=== PATIENT | female | born 1965 ===

== ENCOUNTER 2022-09-23 08:58 | Outpatient (AMB) | payer OTHER, SELFPAY ==
--- NOTE | 2022-09-23 09:03 | A.OFFPC_ITS ---
Vital Signs 09/23/22 09:19 BMI Reason not done Patient refused/unable BP 100/70 Blood Pressure Location Lt brachial Position Sitting Pulse 79 Pulse Source Pulse Oximeter Pulse Oximetry (%) 98 Oxygen Delivery Method Room Air Intake Visit Reasons: PE Intake Note: Pt is here today as a New Patient to est care/PE Allergies anesthesia Allergy (Intermediate, Uncoded 02/15/23 14:19) heart stops almond Adverse Reaction (Uncoded 02/15/23 14:19) Anaphylaxis eggs Adverse Reaction (Uncoded 02/15/23 14:19) rash latex Adverse Reaction (Uncoded 02/15/23 14:19) rash soy sauce Adverse Reaction (Uncoded 02/15/23 14:19) Anaphylaxis Medication List - Last Reconciled 09/23/22 by Leatha Marte MD albuterol sulfate 90 mcg/actuation (Ventolin HFA) 0 mcg inhalation albuterol sulfate mg inhalation Q6H PRN baclofen 10 mg PO TID betamethasone dipropionate 0.05% topical BID clobetasol 0.05% mL topical DAILY cyclosporine 0.05% drps ophthalmic (eye) dalfampridine ER 0 mg PO ezetimibe 10 mg PO DAILY kjpngkmjnyc-nzzlfdysn-oxstugam 200-62.5-25 mcg (Trelegy Ellipta) 1 ea inhalation DAILY gabapentin 600 mg PO QID hydroxychloroquine 200 mg PO BID ketoconazole 2% 1 appl topical mirtazapine 15 mg PO BEDTIME oxycodone 10 mg PO BID PRN pantoprazole 40 mg PO BID polyethylene glycol 3350 17 grams PO BID prednisone 7.5 mg PO DAILY sertraline 200 mg PO QAM sulfamethoxazole-trimethoprim 800-160 mg 1 tab PO 3XW tacrolimus 0.1% topical BID triamcinolone acetonide 0.1% dental BID umeclidinium 62.5 mcg/actuation (Incruse Ellipta) 1 inh inhalation DAILY warfarin 1 - 4 mg PO QAM Tobacco use date assessed: 09/23/22 HPI PE HPI Details 58-year-old lady here today to establish care with new PCP. She is currently being seen at [facility] , currently sees Dr.Farrah Estrada for her MS. She sees Dr. Shabana Chun , Rheumatology, for treatment of her systemic lupus erythematosus with history of pericarditis, , sicca syndrome , Neuromyelitis optica and for her osteoporosis. She is also being followed by Dr. Chicho Paredes , her director of academic for her mild persistent asthma. Awaiting copy of medical records for review. Patient states that she has had recent labs done as well as mammogram done at [facility]. Has history of recurrent DVT, currently on warfarin managed by [facility] anticoagulation management service. Does not get a flu vaccine or the COVID vaccine booster, as she has had a bad reaction from the former, and is apprehensive about getting the COVID booster. She has depression, since her teenage years, currently sees Dr. Aubrie Harden at [facility] in [place]. She has no acute complaints at present time. [facility], [facility] Medical History (Updated 12/22/23 @ 01:40 by Leatha Marte MD) Chronic pain of both shoulders Atherosclerosis of [place] coronary artery of [place] heart without angina pectoris History of recurrent deep vein thrombosis (DVT) Osteoporosis Sicca syndrome Multiple sclerosis History of COVID-19 Depression Mild persistent asthma Neuromyelitis optica Neurogenic bladder SLE (systemic lupus erythematosus related syndrome) Surgical History (Updated 12/22/23 @ 01:39 by Leatha Marte MD) Status post total hysterectomy Hx of colonoscopy Family History Brother Mental health disorder Daughter Mental health disorder Social History Housing: House Patient Tobacco Use Status: Never used Tobacco e-Cigarette/Vaping Use: Never Used service: No Current occupational status: disabled Cognitive needs: No Hearing needs: No Vision needs: Yes Questionnaire PHQ-9 Over the last 2 weeks, how often have you been bothered by any of the following problems? 1. Little interest or pleasure in doing things: several days 2. Feeling down, depressed, or hopeless: not at all 3. Trouble falling or staying asleep, or sleeping too much: more than half the days 4. Feeling tired or having little energy: more than half the days 5. Poor appetite or overeating: not at all 6. Feeling bad about yourself - or that you are a failure or have let yourself or your family down: not at all 7. Trouble concentrating on things, such as reading the newspaper or watching television: several days 8. Moving or speaking so slowly that other people could have noticed. Or the opposite - being so fidgety or restless that you have been moving around a lot more than usual: not at all 9. Thoughts that you would be better off or of hurting yourself in some way: not at all Total score: 6 Depression Screening Interpretation: Positive (Currently controlled with medication, sees Dr. Aubrie Harden at [facility] in [place]) [address] - PHQ-9 Billing: Yes Source: Developed by Drs. Varghese Campuzano, Brigitte Curry, Reilly Bynum and colleagues, with an educational artie from [employer]. Thrive Questionnaire Declines Thrive assessment: No Date Thrive assessed: 09/23/22 I am a: Parent/Caregiver What is your living situation today?: I have a steady place to live Within the past 12 months, did the food you bought not last and you didn't have the money to get more?: Never true Within the past 12 months, did you worry whether your food would run out before you got money to buy more?: Never true Do you have trouble paying for medicines?: No Do you have trouble getting transportation to medical appointments?: No Do you have trouble paying your heating and electricity bill?: Yes Do you have trouble taking care of your child, family member or friend?: No Do you have trouble with day-to-day activities such as bathing, preparing meals, shopping, managing finances, etc.?: No Are you currently unemployed and looking for a job?: No Are you interested in more education?: No AUDIT C Alcohol Use Questionnaire (AUDIT-C) 1. How often do you have a drink containing alcohol?: Never Total Score: 0 JODY-7 AMB Questionnaire JODY-7 Date JODY - 7 assessed: 09/23/22 Feeling nervous, anxious, or on edge: 1 = Several days Not being able to stop or control worryin = Several days Worrying too much about different things: 1 = Several days Trouble relaxin = Several days Being so restless that it is hard to sit still: 0 = Not at all Becoming easily annoyed or irritable: 1 = Several days Feeling afraid as if something awful might happen: 0 = Not at all Total JODY-7 score (0-4 normal; 5-9 mild; 10-14 moderate; 15-21 severe): 5 Source: Developed by Drs. Varghese Campuzano, Brigitte Curry, Reilly Bynum and colleagues, with an educational artie from [employer]. JODY-7 Assessment Billing JODY-7 Assessment Tool: JODY-7 Assessment 37873 Review of Systems Const Denies body aches, Denies fever(s), Reports headache(s) and Denies weakness Eyes Denies change in vision ENT Reports dysphagia (Occasional), Denies dizziness, Reports headache(s), Denies nasal congestion, Denies nasal discharge and Denies sore throat Card Details: Followed by Dr.Cian Gui Mcmahan @ [facility] Denies chest pain, Denies lightheadedness, Denies palpitations and Denies dyspnea Resp Denies chest congestion, Denies cough, Denies dyspnea and Denies wheezing GI Details: Her GI specialist Dr. 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 Vida Hoffman Denies breast pain, Denies breast mass and Denies rash Neuro Denies dizziness, Reports headache(s), Reports Sensory deficit (Neuro) (No sensation below sternum) and Denies weakness Psych Reports as per HPI Endo Denies polydipsia, Denies polyuria and Denies palpitations Salvador/Lymph Details: On chronic anticoagulation with warfarin currently followed at [facility] Reports easy bruising Aller/Immun Details: Followed by research chief engineer, Dr.Anna Bonnie Gordon Reports seasonal rhinorrhea and Denies wheezing Physical exam (Primary Care) Vital Signs: Last Vital Signs Pulse 79 09/23/22 09:19 BP 100/70 09/23/22 09:19 Pulse Ox 98 09/23/22 09:19 Oxygen Delivery Method Room Air 09/23/22 09:19 Tobacco/Smoking Status: Tobacco use Status Tobacco use date assessed 09/23/22 09/23/22 09:18 Patient Tobacco Use Status Never used Tobacco 09/23/22 09:18 e-Cigarette/Vaping Use Never Used 09/23/22 09:18 PHQ-9: PHQ-9 Score PHQ-9: Total score 6 12/12/23 22:13 Depression Screening Interpretation: Positive (Currently controlled with medication, sees Dr. Aubrie Harden at [facility] in [place]) Thrive Assessment: Date of Thrive Assessment Date Thrive assessed 09/23/22 09/23/22 09:35 Const Other: Alert oriented x3 HENMT Head: Yes normocephalic Ears: external ears normal, TM's normal bilaterally and EAC's normal General nose exam: Normal external nose present Face and sinus: Yes face symmetric Mouth: Normal oral and palatal mucosa present and moist mucous membranes Eyes Other: VA :20/20 OS , blind OD General: appearance normal, both eyes and all related structures Neck Neck: Yes full ROM and Yes supple Chest Breast/axilla palpation: normal palpation of the breasts Resp Auscultation: clear to auscultation bilaterally Cardio Rate: regular rate Rhythm: regular rhythm Heart sounds: S1 normal heart sound present and S2 normal heart sound present GI Palpation (GI): Soft to palpation, nontender and no masses Auscultation: normal bowel sounds General: Yes no CVA tenderness and Yes deferred (Patient refuses exam) Back/Spine/Pelvis Back: no CVA tenderness and No back tenderness Neuro Sensory Exam: Sensory deficit (Neuro) (No sensation below sternum) Extrem Other: Positive ulnar deviation of fingers in both hands General: Yes no joint enlargement Psych Appearance: grossly normal Mental Status: mental status grossly normal Speech and movement: Normal speech and movement present Affect: normal affect Assessment and Plan Assessment & Plan (1) Annual visit for general adult medical examination with abnormal findings: Code(s): Z00.01 - Encounter for general adult medical examination with abnormal findings Plan: Requested copy of medical records, to include recent labs done. Recommended dental visit every 6 months and regular eye exams.. Take adequate calcium in diet and vitamin-D 3 at 2000 IU per cap once a day, but is limited in her ability to exercise. Instructed to do self-breast exam, and continue yearly mammogram, up-to-date.. Up-to-date with her screening colonoscopy done in 2018 due again in 2028. Patient declines getting flu vaccine hesitant to get COVID booster, recommended to get Shingrix vaccine which she can have administered at the local pharmacy. (2) Depression: Comment: Diagnosed when she was a teenager, currently seeing Dr. Aubrie Harden at [facility] Code(s): F32.A - Depression, unspecified Qualifiers: Depression Type: major depressive disorder Major depression recurrence: recurrent Active/Remission status: remission status unspecified Qualified Code(s): F33.9 - Major depressive disorder, recurrent, unspecified Plan: Currently on sertraline and mirtazapine, sees psychiatrist at [facility] (3) Mild persistent asthma: Comment: Followed by Dr. Chicho Paredes Code(s): J45.30 - Mild persistent asthma, uncomplicated Plan: Followed by Pulmonary at [facility], currently Incruse Ellipta, Trelegy Ellipta and has as needed albuterol inhaler (4) SLE (systemic lupus erythematosus related syndrome): Comment: Diagnosed at age [address] Shabana Chun. 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 Kelsea Estrada Had infusion in [address] [facility] Code(s): G35 - Multiple sclerosis (7) Sicca syndrome: Code(s): M35.00 - Sjogren syndrome, unspecified (8) History of recurrent deep vein thrombosis (DVT): Comment: Reportedly both and lower and upper extremities, previously been on warfarin for the past 4-5 years Code(s): Z86.718 - Personal history of other venous thrombosis and embolism Plan: On Coumadin, currently followed at [facility] AMS Medications: New polyethylene glycol 3350 17 grams PO BID 510 grams 1RF Coding Level of Care Code New Pt Prev Care 40-64y(69840) Diagnoses Annual visit for general adult medical examination with abnormal findings Z00.01 Recurrent major depressive disorder, remission status unspecified F33.9 Depression Type: major depressive disorder Major depression recurrence: recurrent Active/Remission status: remission status unspecified Mild persistent asthma J45.30 SLE (systemic lupus erythematosus related syndrome) M32.9 Neuromyelitis optica G36.0 Multiple sclerosis G35 Sicca syndrome M35.00 History of recurrent deep vein thrombosis (DVT) Z86.718 Additional Codes JODY-7 Assessment Billing - JODY-7 Assessment Tool: JODY-7 Assessment 34802 ([id number])
[2022-09-23 09:19] VITALS: BP 100/70; PULSE 79; O2SAT 98
== END 2022-09-23 12:56 | disposition home or self-care (01) ==
LOC: HO.HMGC 08:58
PROVIDERS: PCP Internal Medicine; Visit Provider Internal Medicine
DX: Z00.00 Encounter for general adult medical examination without abnormal findings (principal); F33.9 Major depressive disorder, recurrent, unspecified; M32.9 Systemic lupus erythematosus, unspecified; G36.0 Neuromyelitis optica [Devic]; G35 Multiple sclerosis; M35.00 Sjogren syndrome, unspecified; J45.30 Mild persistent asthma, uncomplicated; Z86.718 Personal history of other venous thrombosis and embolism
CPT/HCPCS: 99499

== ENCOUNTER 2023-02-15 12:59 | Outpatient (AMB) | payer OTHER, SELFPAY ==
--- NOTE | 2023-02-15 14:02 | A.OFFPC_ITS ---
Vital Signs 02/15/23 14:03 02/15/23 14:07 Height 5 ft 4 in BMI Reason not done Patient refused/unable BP 102/74 Blood Pressure Location Lt brachial Position Sitting Pulse 74 Pulse Source Pulse Oximeter Pulse Oximetry (%) 97 Oxygen Delivery Method Room Air Intake Visit Reasons: Med review Intake Note: pt is here today for med review Allergies anesthesia Allergy (Intermediate, Uncoded 02/15/23 14:19) heart stops almond Adverse Reaction (Uncoded 02/15/23 14:19) Anaphylaxis eggs Adverse Reaction (Uncoded 02/15/23 14:19) rash latex Adverse Reaction (Uncoded 02/15/23 14:19) rash soy sauce Adverse Reaction (Uncoded 02/15/23 14:19) Anaphylaxis Medication List - Last Reconciled 02/15/23 by Leatha Marte MD albuterol sulfate 90 mcg/actuation (Ventolin HFA) 0 mcg inhalation albuterol sulfate mg inhalation Q6H PRN baclofen 10 mg PO TID betamethasone dipropionate 0.05% topical BID clobetasol 0.05% mL topical DAILY cyclosporine 0.05% drps ophthalmic (eye) dalfampridine ER 0 mg PO ezetimibe 10 mg PO DAILY kjqniiixrji-juwdbuktq-weunhdvj 200-62.5-25 mcg (Trelegy Ellipta) 1 ea inhalation DAILY gabapentin 600 mg PO QID hydroxychloroquine 200 mg PO BID ketoconazole 2% 1 appl topical mirtazapine 15 mg PO BEDTIME oxycodone 10 mg PO BID PRN pantoprazole 40 mg PO BID polyethylene glycol 3350 17 grams PO BID prednisone 7.5 mg PO DAILY sertraline 200 mg PO QAM sulfamethoxazole-trimethoprim 800-160 mg 1 tab PO 3XW tacrolimus 0.1% topical BID triamcinolone acetonide 0.1% dental BID umeclidinium 62.5 mcg/actuation (Incruse Ellipta) 1 inh inhalation DAILY warfarin 1 - 4 mg PO QAM Tobacco use date assessed: 02/15/23 HPI Med review HPI Details 58-year-old lady with history of systemi c lupus erythematosus, sicca syndrome, history of multiple sclerosis, here today complaining of pain in shoulders, not relieved with Tylenol, or baclofen.. She is currently being seen by director of leadership development in [place] but has difficulty with transportation [facility] Medical History (Updated 12/22/23 @ 01:40 by Leatha Marte MD) Chronic pain of both shoulders Atherosclerosis of [place] coronary artery of [place] heart without angina pectoris History of recurrent deep vein thrombosis (DVT) Osteoporosis Sicca syndrome Multiple sclerosis History of COVID-19 Depression Mild persistent asthma Neuromyelitis optica Neurogenic bladder SLE (systemic lupus erythematosus related syndrome) Surgical History (Updated 12/22/23 @ 01:39 by Leatha Marte MD) Status post total hysterectomy Hx of colonoscopy Family History Brother Mental health disorder Daughter Mental health disorder Social History Housing: House Patient Tobacco Use Status: Never used Tobacco e-Cigarette/Vaping Use: Never Used service: No Current occupational status: disabled Cognitive needs: No Hearing needs: No Vision needs: Yes Questionnaire Thrive Questionnaire Date Thrive assessed: 09/23/22 AUDIT C Alcohol Use Questionnaire (AUDIT-C) 1. How often do you have a drink containing alcohol?: Never 3. How often do you have six or more drinks on one occasion?: Never Total Score: 0 JODY-7 AMB Questionnaire JODY-7 Date JODY - 7 assessed: 09/23/22 Source: Developed by Drs. Varghese Campuzano, Brigitte Curry, Reilly Bynum and colleagues, with an educational artie from [employer]. Review of Systems Const Denies fever(s) Eyes Denies change in vision ENT Reports dysphagia (Occasional), Denies dizziness, Denies nasal congestion, Denies nasal discharge and Denies sore throat Card Details: Followed by Dr.Cian Gui Mcmahan @ [facility] Denies chest pain, Denies lightheadedness, Denies palpitations and Denies dyspnea Resp Denies chest congestion, Denies cough and Denies dyspnea GI Details: Her GI specialist Dr. 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 Vida Hoffman Denies breast pain, Denies breast mass and Denies rash Neuro Denies dizziness and Reports Sensory deficit (Neuro) (No sensation below sternum) Endo Denies polydipsia, Denies polyuria and Denies palpitations Salvador/Lymph Details: On chronic anticoagulation with warfarin currently followed at [facility] Reports easy bruising Physical exam (Primary Care) Vital Signs: Last Vital Signs Pulse 74 02/15/23 14:03 BP 102/74 02/15/23 14:07 Pulse Ox 97 02/15/23 14:03 Oxygen Delivery Method Room Air 02/15/23 14:03 Tobacco/Smoking Status: Tobacco use Status Tobacco use date assessed 02/15/23 02/15/23 14:08 Patient Tobacco Use Status Never used Tobacco 02/15/23 14:03 e-Cigarette/Vaping Use Never Used 02/15/23 14:03 Thrive Assessment: Date of Thrive Assessment Date Thrive assessed 09/23/22 02/15/23 14:03 Const Other: Alert oriented x3 HENMT Head: Yes normocephalic General nose exam: Normal external nose present Face and sinus: Yes face symmetric Mouth: Normal oral and palatal mucosa present and moist mucous membranes Eyes Other: VA :20/20 OS , blind OD General: appearance normal, both eyes and all related structures Neck Neck: Yes full ROM and Yes supple Chest Breast/axilla palpation: normal palpation of the breasts Resp Auscultation: clear to auscultation bilaterally Cardio Rate: regular rate Rhythm: regular rhythm Heart sounds: S1 normal heart sound present and S2 normal heart sound present GI Palpation (GI): Soft to palpation, nontender and no masses Auscultation: normal bowel sounds Back/Spine/Pelvis Back: No back tenderness Neuro Sensory Exam: Sensory deficit (Neuro) (No sensation below sternum) Extrem Other: Positive ulnar deviation of fingers in both hands General: Yes no joint enlargement Assessment and Plan Assessment & Plan (1) SLE (systemic lupus erythematosus related syndrome): Comment: Diagnosed at age [address] Shabana Chun. 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 Developed a rash on her extremities in 2019 and biopsy was consistent with S Cl E and started on hydroxychloroquine Code(s): M32.9 - Systemic lupus erythematosus, unspecified Plan: Patient with polyarthralgia, prescription sent for tapering dose of prednisone, advised to follow-up with her director of leadership development Peter if no improvement of symptoms (2) Neurogenic bladder: Comment: As a result of transverse myelitis Code(s): N31.9 - Neuromuscular dysfunction of bladder, unspecified Plan: Prescription written for bedside commode, wears adult hyper Medications: New commode (bedside commode) As directed 1 ea 0RF Unstable gait M32.9 - Systemic lupus erythematosus, unspecified, M35.07 - Sjogren syndrome with central nervous system involvement, N31.9 - Neuromuscular dysfunction of bladder, unspecified prednisone Take 40 mg (4 tabs) once a day on days 1 and 2, 30 mg (3tabs) po qd on days 3-4, 20 mg (2 tabs) po on days 5-6,then 10 mg(1 tab)po qd on days 7-8 10 mg PO DIRECTED 20 tabs 0RF Coding Level of Care Code Est Pt Level 4 (41121) Diagnoses SLE (systemic lupus erythematosus related syndrome) M32.9 Neurogenic bladder N31.9
[2023-02-15 14:03] VITALS: PULSE 74; O2SAT 97
[2023-02-15 14:07] VITALS: BP 102/74
== END 2023-02-15 14:53 | disposition home or self-care (01) ==
PROVIDERS: Visit Provider Internal Medicine
DX: M32.9 Systemic lupus erythematosus, unspecified (principal); N31.9 Neuromuscular dysfunction of bladder, unspecified
CPT/HCPCS: 99499